=== PATIENT | male | born 1940 | race Caucasian/White ===

== ENCOUNTER 2021-12-21 12:47 | Emergency (ER) | payer MEDICARE, SELFPAY ==
[2021-12-21 13:00] VITALS: BP 145/69; PULSE 74; RESP 16; TEMP 37; O2SAT 100
--- NOTE | 2021-12-21 13:11 | ED.DENTAL ---
HPI - Dental/Oral General Chief complaint: Dental/Oral Stated complaint: Toothache/Facial Swelling Time Seen by Provider: 12/21/21 13:11 Source: patient Mode of arrival: ambulatory History of Present Illness HPI Narrative: 81-year-old male presented for complaint of right-sided facial pain for 2 days. States pain is located in the right upper gumline, but he has swelling to the right lower gumline. Patient is a poor historian. He has been using heat and ice for symptoms. MD Complaint: tooth pain Related Data Home Medications Medication Instructions Recorded Confirmed citalopram 20 mg tablet 20 mg PO DAILY 12/21/21 12/21/21 losartan 100 mg tablet 100 mg PO DAILY 12/21/21 12/21/21 simvastatin 10 mg tablet 10 mg PO DAILY 12/21/21 12/21/21 tiotropium bromide 18 mcg capsule 1 cap inhalation DAILY 12/21/21 12/21/21 with inhalation device (Spiriva with HandiHaler) Allergies Allergy/AdvReac Type Severity Reaction Status Date / Time No Known Allergies Allergy Verified 12/21/21 13:11 Review of Systems Review of Systems: CONSTITUTIONAL: Denies body aches, fever, chills ENT: Denies rhinorrhea, congestion, sore throat, or otalgia. Reports right facial pain CARDIOVASCULAR: Denies chest pain, palpitations RESPIRATORY: Denies cough or dyspnea. SKIN: Denies rash, itching, or wounds. MUSCULOSKELETAL: Denies myalgia. NEUROLOGIC: Denies headache, numbness, tingling, or weakness. PMFSH Comments At time of signature, I have reviewed and agree with nursing past medical, surgical, social and family history unless otherwise noted. Please see nursing chart for further information. There is no relevant family history pertinent to the presenting complaint Exam Narrative: GENERAL: Well-appearing HEAD: Normocephalic, atraumatic. EYES: EOMI. No redness or drainage. Conjunctivae normal. ENT: Right Facial pain and TTP to maxilla with mild swelling and redness under eye, no apparent periapical abscess or gum swelling; Right lower mandible swelling without tenderness or bruising, no redness or gum swelling/abscess; Mucous membranes pink and moist. Throat normal. Uvula midline. NECK: Normal AROM. No lymphadenopathy. CHEST: No respiratory distress. Clear to auscultation. HEART: Regular rate and rhythm. No murmur appreciated. SKIN: Warm, dry, no rash. Poor skin turgor. NEURO: No focal deficits. Confusion/forgetful. Talkative. Gait steady. Course Course Emergency Course: Patient is aware of diagnosis, understands and agrees to treatment plan. Anticipatory guidance given. Patient agrees to follow-up as directed and is aware of reasons to seek care at the emergency department. Portions of this record may have been created with voice recognition software Level of Care: Express Care Visit Vital Signs Vital signs: Vital Signs Temperature 98.6 F 12/21/21 13:00 Pulse Rate 74 12/21/21 13:00 Respiratory Rate 16 12/21/21 13:00 Blood Pressure 145/69 H 12/21/21 13:00 Pulse Oximetry 100 12/21/21 13:00 Oxygen Delivery Room Air 12/21/21 13:00 Temperature 98.6 F 12/21/21 13:00 Pulse Rate 74 12/21/21 13:00 Respiratory Rate 16 12/21/21 13:00 Blood Pressure 145/69 H 12/21/21 13:00 Pulse Oximetry 100 12/21/21 13:00 Oxygen Delivery Room Air 12/21/21 13:00 MDM - Dental/Oral MDM Narrative Medical decision making narrative: At time of discharge we ensured was present for instructions. states confusion is chronic and worsening slowly. Advised to take the antibiotic along with Tylenol and ibuprofen as needed for pain. They are aware if symptoms worsen to go to the ER. There are no focal signs of space occupying lesions that are compromising to the airway; no dysphagia, odynophagia, dysphonia, or dyspnea. No uvular deviation or soft palate edema. Patient is non-toxic appearing. The floor of the mouth is soft with no signs of Alex's Angina; no induration below mandible, no neck rina
[2021-12-21 13:13] VITALS: BP 145/69; PULSE 74; RESP 16; TEMP 37; O2SAT 100
== END 2021-12-21 13:31 | disposition home or self-care (01) ==
PROVIDERS: Emergency Provider Nurse Practitioner Family
DX: R51.9 Headache, unspecified (principal)
CPT/HCPCS: 99213; G0463